=== PATIENT | male | born 1955 | race Caucasian/White ===

== ENCOUNTER 2019-08-24 01:00 | Day surgery (SDC) | payer OTHER, SELFPAY ==
[2019-08-19 10:53] VITALS: BMI 25.9
[2019-08-24 08:01] VITALS: BP 116/77; PULSE 77; RESP 16; TEMP 36.3; O2SAT 100; BMI 25.9
--- NOTE | 2019-08-24 08:08 | WPDANESEPPF ---
Anes - Initial Pre Proc Eval Procedure: Operation Date: 08/24/19 09:00 Proposed Procedures p Colonoscopy - Diogo Raymundo MD Date/Time: 08/24/19 08:08 Surgeon: Diogo Raymundo MD Pre Op Diagnosis: Rectal Bleeding Patient Data Age: 64 Gender: M Height: 5 ft 10 in Weight: 82.2 kg Last Vital Signs Temp 36.3 C L 08/24/19 08:01 Pulse 77 08/24/19 08:01 Resp 16 08/24/19 08:01 BP 116/77 08/24/19 08:01 Pulse Ox 100 08/24/19 08:01 Allergies Allergy/AdvReac Type Severity Reaction Status Date / Time No Known Allergies Allergy Verified 08/24/19 07:56 Home Medications Medication Instructions Recorded Confirmed Type atorvastatin 40 mg tablet 40 mg PO DAILY #90 tablet 07/20/19 08/19/19 Rx finasteride 5 mg tablet 5 mg PO DAILY #90 tablet 07/20/19 08/19/19 Rx loratadine [Claritin] 10 mg PO DAILY 08/19/19 08/19/19 History Patient hx anesthesia problems: none Family hx anesthesia problems: none PMFSH Past Medical History Medical History Rectal Hemorrhage Family History Family History Father Family history of coronary artery disease Social History Social History Smoking status: Never smoker Second hand tobacco smoke exposure: No Alcohol intake: current Gender identity (if verbalized by the patient): Male Anes - Eval Final PreProcedure Day of Procedure 08/24/19 08:08 Patient weight: overweight Heart: regular rate and rhythm Lungs: clear to auscultation Airway: Mallampati scale class II Neurological: alert and oriented Last oral intake: >/= 8 hours ASA classification: II Emergent: no Anesthetic plan: proceed Anesthesia type and monitoring: general GIVS and standard monitoring Informed Consent: The patient's anesthetic plan and its attendant risks and benefits were discussed with the patient/family/POA. Questions were solicited and answers provided to the satisfaction of the patient/family/POA.
[2019-08-24] MEDS: LACTATED RINGERS 1,000 ML 150 ML IV CONT (08:17)
--- NOTE | 2019-08-24 08:52 | WPDHPUPDATE1 ---
History and Physical Update Update Date/Time: 08/24/19 08:52 History and Physical has been reviewed, including an updated exam of the patient. There are NO changes in the patient's condition. Risks, benefits, and alternatives have been discussed and questions answered. Patient agrees to proceed with procedure.
[2019-08-24 09:15] VITALS: BP 112/74; PULSE 74; RESP 21; O2SAT 97
[2019-08-24 09:25] VITALS: BP 115/73; PULSE 64; RESP 13; O2SAT 98
[2019-08-24 09:29] VITALS: BP 123/85; PULSE 62; RESP 16; O2SAT 98
== END 2019-08-24 09:45 | disposition home or self-care (01) ==
PROVIDERS: PCP Family Medicine; Visit Provider Internal Medicine Gastroenterology
PROC: 0DJD8ZZ Inspection of Lower Intestinal Tract, Via Natural or Artificial Opening Endoscopic (ICD-10-PCS; CPT 45378; principal; 2019-08-24 09:00)
DX: K62.5 Hemorrhage of anus and rectum (principal); K57.30 Diverticulosis of large intestine without perforation or abscess without bleeding; K64.8 Other hemorrhoids; K64.4 Residual hemorrhoidal skin tags
CPT/HCPCS: 45378; J2001; J2704; J7120

== ENCOUNTER 2020-06-09 08:10 | Outpatient (CLI) | payer OTHER, SELFPAY ==
--- NOTE | ~2020-06-09 | XR_ITS ---
XR foot RT 2V DATE: 06/09/2020 08:21 INDICATION: Right foot pain TECHNIQUE: AP and lateral views COMPARISON: 05/22/2016 right great toe FINDINGS: There is severe osteoarthritis at the first metatarsophalangeal joint. Mild plantar calcaneal enthesopathy. There are some focal circumscribed calcification in the distal Achilles tendon. No fracture or dislocation, periosteal reaction or bone destruction. Anterior tibial and dorsalis pedis artery calcifications. 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 OPERATOR
== END 2020-06-09 08:11 | disposition home or self-care (01) ==
PROVIDERS: PCP Family Medicine; Visit Provider Nurse Practitioner Family
DX: M19.071 Primary osteoarthritis, right ankle and foot (principal); M77.31 Calcaneal spur, right foot
CPT/HCPCS: 73620

== ENCOUNTER → 2020-06-23 06:51 | Outpatient (CLI) | payer OTHER, SELFPAY ==
[2020-06-23 20:12] LABS: SARS-CoV-2 RNA PCR Negative
== END ==
PROVIDERS: PCP Family Medicine; Visit Provider Physician Assistant Medical
DX: R68.89 Other general symptoms and signs (principal); Z20.822 Contact with and (suspected) exposure to COVID-19
CPT/HCPCS: C9803; U0003; U0005

== ENCOUNTER 2020-10-17 10:26 | Emergency (ER) | payer OTHER, SELFPAY ==
--- NOTE | 2020-10-17 10:43 | ED.GENADULT ---
HPI - General Adult General Chief complaint: Wound/Laceration Stated complaint: INFECTED CYST ON MY BACK Time Seen by Provider: 10/17/20 10:29 History of Present Illness HPI narrative: Patient is a 65-year-old male who presents ER with a infected cyst to his left back. Was seen by his PCP last week and prescribed clindamycin. He continues to drain but the cellulitis surrounding it has improved. No fevers or chills or sweats. Has not had this opened for about 12 years. Related Data Home Medications Medication Instructions Recorded Confirmed finasteride 5 mg tablet 5 mg PO DAILY tablet 10/12/20 10/12/20 Allergies Allergy/AdvReac Type Severity Reaction Status Date / Time No Known Allergies Allergy Verified 10/12/20 14:07 Review of Systems Constitutional: Constitutional: Denies chills, Denies fever(s) and Denies weakness Integumentary/Breasts: Skin/Breast: Denies pruritus, Reports erythema and Denies rash Comments: abscess PMFSH Past Medical History Medical History BMI 26.0-26.9,adult BMI 29.0-29.9,adult Rectal Hemorrhage Family History Family History Father Family history of coronary artery disease Mother COPD (chronic obstructive pulmonary disease) Myasthenia gravis Sibling No problems noted. Social History Social History Smoking status: Former smoker Tobacco type: cigarettes Second hand tobacco smoke exposure: Yes Alcohol intake: current Substance use: never Substance use type: does not use Additional occupation/education comments: [employer] Gender identity (if verbalized by the patient): Male Exam Narrative: Exam Narrative: GENERAL: Well-appearing, well-nourished, and in no acute distress. HEAD: Normocephalic, atraumatic. EXTREMITIES: Normal range of motion. No edema. SKIN: Warm, dry, no rash. Weeping cystic abscess left flank. NEURO: Alert and oriented x3. PSYCH: Normal mood and affect. Course Vital Signs Vital signs: Vital Signs Temperature 98.0 F 10/17/20 10:53 Pulse Rate 72 10/17/20 10:53 Respiratory Rate 12 10/17/20 10:53 Blood Pressure 135/88 10/17/20 10:53 Pulse Oximetry 100 10/17/20 10:53 Temperature 98.0 F 10/17/20 10:53 Pulse Rate 72 10/17/20 10:53 Respiratory Rate 12 10/17/20 10:53 Blood Pressure 135/88 10/17/20 10:53 Pulse Oximetry 100 10/17/20 10:53 Procedures Abscess I/D back: Date of Incision: 10/17/20 Time of Incision: 10:55 Side (if applicable): left Local Anesthetic: lidocaine 1% and with epi Amount of anesthesia used (mL): 9 Technique: incised with #11 blade Irrigation: No Packing used?: iodoform I&D Results: Pus and Other (cystic material) Medical Decision Making Vital Signs Vital Signs: Vital Signs Temperature 98.0 F 10/17/20 10:53 Pulse Rate 72 10/17/20 10:53 Respiratory Rate 12 10/17/20 10:53 Blood Pressure 135/88 10/17/20 10:53 Pulse Oximetry 100 10/17/20 10:53 Temperature 98.0 F 10/17/20 10:53 Pulse Rate 72 10/17/20 10:53 Respiratory Rate 12 10/17/20 10:53 Blood Pressure 135/88 10/17/20 10:53 Pulse Oximetry 100 10/17/20 10:53 Discharge Plan Discharge Clinical Impression: Infected cyst of skin Patient Disposition: Home, Self-Care Condition: Stable Instructions: Antibiotic Form, Cyst (ED), Abscess Incision and Drainage (DC) Additional Instructions: You had an infected cyst on your back drained. Remove the packing in 2 days. You are being prescribed additional Keflex to take. Follow-up with your primary care doctor. Will likely need plastics referral for cyst removal. Return the ER if you have fever of 100.4 ?F, you cannot breathe, you have additional concerns. Presc
[2020-10-17 10:53] VITALS: BP 135/88; PULSE 72; RESP 12; TEMP 36.7; O2SAT 100
== END 2020-10-17 11:43 | disposition home or self-care (01) ==
PROVIDERS: Emergency Provider Emergency Medicine; PCP Family Medicine
DX: L02.212 Cutaneous abscess of back [any part, except buttock and flank] (principal); Z87.891 Personal history of nicotine dependence
CPT/HCPCS: 10061; 99283

== ENCOUNTER → 2021-02-14 08:20 | Outpatient (REF) | payer MEDICARE, SELFPAY | LOC: ANHLAB 08:20 | PROVIDERS: PCP Family Medicine; Visit Provider Nurse Practitioner | DX: L72.0 Epidermal cyst (principal) | CPT/HCPCS: 88304 ==

== ENCOUNTER 2021-12-28 07:59 | Outpatient (CLI) | payer MEDICARE, SELFPAY ==
--- NOTE | ~2021-12-28 | MR_ITS ---
EXAMINATION: MR brain/brain stem wo/w con DATE: 12/28/2021 08:46 INDICATION: Headache. TECHNIQUE: Magnetic resonance imaging (MRI) of the brain and brainstem was performed without and with 16 mL MultiHance intravenous contrast. COMPARISON: None. FINDINGS: There are scattered areas of nonspecific increased T2-weighted signal intensity in the cere bral white matter. There is no intracranial hemorrhage, acute infarction, or abnormal intracranial ma ss lesion. The ventricles are normal in size. The orbits are normal. There is mucosal thickening in t he paranasal sinuses. The mastoid air cells are normal. IMPRESSION: 1. Mild nonspecific cerebral white matter disease, which likely represents chronic small vessel ische laurent disease. Reviewed, dictated and finalized at location A. IMPRESSION: 1. 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
== END 2021-12-28 08:00 | disposition home or self-care (01) ==
LOC: ANHIMG 08:01
PROVIDERS: PCP Family Medicine; Visit Provider Nurse Practitioner Family
DX: R51.9 Headache, unspecified (principal); R93.0 Abnormal findings on diagnostic imaging of skull and head, not elsewhere classified
CPT/HCPCS: 70553; A9577

== ENCOUNTER 2024-05-02 23:58 | Emergency (ER) | payer MEDICARE, SELFPAY ==
--- NOTE | ~2024-05-02 | CT_ITS ---
EXAMINATION: CT abdomen pelvis w con DATE: 05/03/2024 02:25 INDICATION: Abdominal pain TECHNIQUE: Computed tomography (CT) of the abdomen and pelvis was performed with 100 mL Omnipaque-350 intravenous contrast. Automated exposure control and iterative reconstruction technique were employe d. The dose-length product was 478.03 mGy-cm. COMPARISON: None FINDINGS: Mild dependent atelectasis in bilateral lower lobes. Visualized inferior heart is unremarkable aside from some atherosclerotic coronary artery calcification. No pericardial or pleural effusion. Small sl iding-type hiatal hernia. There are couple subcentimeter low-attenuation hepatic cysts. Common bile d uct is dilated to 9 mm there is also diffuse mild intrahepatic biliary ductal dilation. No definitive distal obstructing stone or mass. Gallbladder remains normal. Spleen, pancreas and bilateral adrenal glands are normal. Bilateral nonobstructing nephrolithiasis with 5 mm stone at the mid left kidney a nd 2 mm stone at a lower pole calyx of the right kidney. Prominent distention of the bladder. Mild pr ostatomegaly measuring 4.2 x 3.5 cm. There is mild scattered colonic diverticulosis without adjacent from trace stranding to suggest diverticulitis. Small bowel and appendix are normal. No free intraper itoneal gas or fluid. No pathologically enlarged abdominal or pelvic lymphadenopathy. Moderate lumbar spondylosis. Chronic L1 compression fracture with 20% anterior vertebral body height loss. [place] d fractures of the right inferior pubic body and right sacral ala. IMPRESSION: 1. Mild intra and extrahepatic biliary ductal dilation without evident obstructing stone or mass. Cor relate with liver function tests and consider MRCP for further evaluation. 2. Small sliding-type hiatal hernia. 3. Bilateral nonobstructing nephrolithiasis. 4. Prominent distention of the bladder which could be due to outlet obstruction from the mildly enlar ged prostate. Reviewed, dictated and finalized at location A. TAIN WAITRESS/WAITER IMPRESSION: 1. Mild intra and extrahepatic biliary ductal dilation without evident obstruct ing stone or mass. Correlate with liver function tests and consider MRCP for fu rther evaluation. 2. Small sliding-type hiatal hernia. 3. Bilateral nonobstructing nephrolithiasis. 4. Prominent distention of the bladder which could be due to outlet obstruction from the mildly enlarged prostate.
--- NOTE | ~2024-05-02 | XR_ITS ---
EXAMINATION: XR chest 1V portable DATE: 05/03/2024 00:37 INDICATION: Mid chest pain TECHNIQUE: frontal view of the chest was obtained. COMPARISON: Chest radiograph dated 05/22/2016 FINDINGS: The lungs remain clear with no focal airspace opacities, pulmonary edema, pleural effusion or pneumot horax. The cardiomediastinal silhouette is normal. Visualized bones and soft tissues are unremarkable . IMPRESSION: 1. No acute cardiopulmonary disease. Reviewed, dictated and finalized at location A. BLE WATER TREATMENT OPERATOR
[2024-05-03] VITALS (7 sets, daily range): BP systolic 117–138; BP diastolic 55–66; PULSE 59–65; RESP 14–18; TEMP 35.1; O2SAT 99–100
--- NOTE | 2024-05-03 00:11 | ECG_ITS ---
Test Date: 2024-05-03 00:16:34 Measurements Intervals [place] Rate: 57 P: 22 UT: 127 QRS: 110 QRSD: 94 T: 48 QT: 414 QTc: 405 Interpretive Statements SINUS BRADYCARDIA MARKED RIGHT AXIS DEVIATION [QRS AXIS > 100] PATTERN CONSISTENT WITH PULMONARY DISEASE ABNORMAL ECG No previous ECG available for comparison Electronically Signed On 05-03-2024 09:02:23 DIGITAL MEDIA COORDINATOR by Satnam Maza M.D.
--- NOTE | 2024-05-03 00:19 | ECG_ITS ---
Test Date: 2024-05-03 00:21:36 Measurements Intervals [place] Rate: 54 P: 44 OR: 145 QRS: 78 QRSD: 102 T: 54 QT: 425 QTc: 404 Interpretive Statements SINUS BRADYCARDIA INDETERMINATE AXIS ABNORMAL ECG Compared to ECG 05/03/2024 00:16:34 Indeterminate axis now present Right-axis deviation no longer present Electronically Signed On 05-03-2024 09:02:42 MANAGER MARKET INTELLIGENCE by Satnam Maza M.D.
[2024-05-03] MEDS: ASPIRIN 81 MG CHEWABLE TABLET 324 MG PO (00:23)
[2024-05-03 00:27] LABS: Basophils Absolute Auto 0.1 K/mm3 (0.0-0.1); Basophils Percent Auto 0.8 % (0.2-1.2); Eosinophils Absolute Auto 0.7 K/mm3 (0-0.3); Eosinophils Percent Auto 6.4 % (0-4.4); Hematocrit 38.7 % (42.0-52.0); Hemoglobin 13.2 g/dL (14.0-18.0); Immature Granulocyte Absolute 0.03 K/mm3 (0.00-0.031); Immature Granulocyte Percent A 0.3 % (0-0.5); Lymphocytes Absolute Auto 2.78 K/mm3 (0.9-3.2); Mean Corpuscular HGB Conc 34.1 g/dl (32-36); Mean Corpuscular Volume 93.7 fl (80-100); Monocytes Absolute Auto 0.9 K/mm3 (0.1-0.6); Monocytes Percent Auto 8.5 % (2.6-8.5); Neutrophils Absolute Auto 5.9 K/mm3 (1.3-6.7); Platelet Count Result 253 k/mm3 (150-375); Red Blood Count 4.13 M/mm3 (4.6-6.20); Red Cell Distribution Width 12.8 % (11.5-14.5); White Blood Count 10.3 K/mm3 (4.5-10.0)
[2024-05-03 00:39] LABS: Prothrombin Time 13.4 Seconds (11.1-14.7)
[2024-05-03 00:40] LABS: Alanine Aminotransferase 45 U/L (6-50); Albumin Level 3.6 g/dL (3.5-5.1); Alkaline Phosphatase 155 U/L (38-126); Anion Gap 2 mmol/L (4-12); Aspartate Amino Transferase 102 U/L (17-59); Bilirubin,Total 0.7 mg/dL (0.2-1.3); Blood Urea Nitrogen 16 mg/dL (9-20); Carbon Dioxide 26 mmol/L (22-30); Chloride 109 mmol/L (98-107); Estimated CRCL calculation 59 ml/min; Estimated Glomerular Filt Rate > 60; Glucose 118 mg/dL (65-110); Lipase 179 U/L (23-300); Partial Thromboplastin Time 30.1 Seconds (22.3-36.8); Potassium 4.1 mmol/L (3.4-5.0); Sodium 137 mmol/L (137-145)
[2024-05-03 00:52] LABS: Troponin I < 0.012 ng/mL (0.000-0.034)
--- NOTE | 2024-05-03 01:29 | ED.GENADULT ---
HPI - General Adult General Chief complaint: Chest Pain Stated complaint: chest pain Time Seen by Provider: 05/03/24 00:39 History of Present Illness HPI narrative: Patient is 61-year-old gentleman who presents emergency department with chief complaint of chest discomfort. Patient reports that he started having discomfort about 30 minutes prior to arrival in the emergency department patient reports that he felt as though somebody was standing on his chest patient reports that he did get diaphoretic when this happened denied radiation to his arm neck. Patient reports no prior cardiac history Related Data Allergies Allergy/AdvReac Type Severity Reaction Status Date / Time sulfamethoxazole (From AdvReac Intermediate rash Verified 03/16/24 08:21 Bactrim) trimethoprim (From Bactrim) AdvReac Intermediate rash Verified 03/16/24 08:21 Review of Systems Review of Systems: A 10 system review of systems was completed on the patient and is negative except for what is stated in the HPI. Nursing and ancillary documentation was reviewed. PMFSH Past Medical History Medical History BMI 28.0-28.9,adult BMI 29.0-29.9,adult BMI 26.0-26.9,adult Rectal Hemorrhage Family History Family History Father Family history of coronary artery disease Mother COPD (chronic obstructive pulmonary disease) Myasthenia gravis Sibling No problems noted. Social History Social History Smoking status: Former smoker Tobacco type: cigarettes Second hand tobacco smoke exposure: Yes Alcohol intake: current Substance use: never Substance use type: does not use Lack of Transportation: No Lack of Food: Never True Current Housing: I Have Housing Concerned About Future Housing: No Difficulty Paying Gas/Electric Bills: No Difficulty Paying for Meds: No Currently Unemployed: No Education: Trade/Vocational Certificate Difficulty w/ Childcare or Family Care: No Living arrangements: with family Occupation/Education: retired Additional occupation/education comments: [employer] Gender identity (if verbalized by the patient): Male Exam Narrative: GENERAL: Well-appearing, well-nourished, and in no acute distress. HEAD: Normocephalic, atraumatic. EYES: PERRLA and EOMI. ENT: Nares clear, no rhinorrhea or epistaxis. Mucous membranes moist. NECK: Supple. CHEST: Clear to auscultation. No respiratory distress. HEART: Regular rate and rhythm. No murmur heard. Normal peripheral pulses. ABDOMEN: Soft, nontender, nondistended, normal active bowel sounds. EXTREMITIES: Normal range of motion. No edema. SKIN: Warm, dry, no rash. NEURO: No focal deficits. Alert and oriented x3. PSYCH: Normal mood and affect. Course Vital Signs Vital signs: Vital Signs Temperature 35.1 C L 05/03/24 00:01 Pulse Rate 65 05/03/24 00:01 Respiratory Rate 18 05/03/24 00:01 Blood Pressure 119/55 L 05/03/24 00:01 Pulse Oximetry 99 05/03/24 00:01 Oxygen Delivery Room Air 05/03/24 00:01 Temperature 35.1 C L 05/03/24 00:01 Pulse Rate 62 05/03/24 02:15 Respiratory Rate 14 05/03/24 02:15 Blood Pressure 138/66 05/03/24 02:15 Pulse Oximetry 100 05/03/24 02:15 Oxygen Delivery Room Air 05/03/24 01:05 Medical Decision Making MDM Narrative Medical decision making narrative: Differential diagnosis includes ACS, pancreatitis, intra-abdominal infection, diverticulitis, colitis, cholecystitis Laboratory studies were obtained on the patient showed a CBC with white count of 10.3 CMP showed no significant abnormalities troponin was 0 hour 3 hour lipase was normal CT scan of the abdomen pelvis showed no acute abnormality. Vital Signs Vital Signs: Vital Signs Temperature 35.1 C L 05/03/24 00:01 Pulse Rate 65 05/03/24 00:01 Respiratory Rate 18 05/03/24 00:01 Blood Pressure 119/55 L 05/03/24 00:01 Pulse Oximetry 99 05/03/24 00:01 Oxygen Delivery Room Air 05/03/24 00:01 Temperature 35.1 C L 05/03/24 00:01 Pulse Rate 62 05/03/24 02:15 Respiratory Rate 14 05/03/24 02:15 Blood Pressure 138/66 05/03/24 02:15 Pulse Oximetry 100 05/03/24 02:15 Oxygen Delivery Room Air 05/03/24 01:05 Lab Data 05/03/24 00:21 05/03/24 00:21 Labs: Lab Results 05/03/24 05/03/24 Range/Units 00:21 03:28 WBC 10.3 H (4.5-10.0) K/mm3 RBC 4.13 L (4.6-6.20) M/mm3 Hgb 13.2 L (14.0-18.0) g/dL Hct 38.7 L (42.0-52.0) % MCV 93.7 (80-100) fl MCH 32.0 (26-34) pg MCHC 34.1 (32-36) g/dl RDW 12.8 (11.5-14.5) % Plt Count 253 (150-375) k/mm3 MPV 10.0 (7.4-10.4) fl Immature Gran % (Auto) 0.3 (0-0.5) % Neut % (Auto) 57.0 (45.5-73.1) % Lymph % (Auto) 27.0 (18.3-44.2) % [place] % (Auto) 8.5 (2.6-8.5) % Eos % (Auto) 6.4 H (0-4.4) % Baso % (Auto) 0.8 (0.2-1.2) % Lymph # (Auto) 2.78 (0.9-3.2) K/mm3 [place] # (Auto) 0.9 H (0.1-0.6) K/mm3 Eos # (Auto) 0.7 H (0-0.3) K/mm3 Baso # (Auto) 0.1 (0.0-0.1) K/mm3 Abs Immat Gran (auto) 0.03 (0.00-0.031) K/mm3 Absolute Neuts (auto) 5.9 (1.3-6.7) K/mm3 Absolute Nucleated RBC 0.000 (0.0-0.012) K/mm3 Nucleated RBC % 0.0 (0.0-0.2) % PT 13.4 (11.1-14.7) Seconds INR 1.0 APTT 30.1 (22.3-36.8) Seconds Sodium 137 (137-145) mmol/L Potassium 4.1 (3.4-5.0) mmol/L Chloride 109 H (98-107) mmol/L Carbon Dioxide 26 (22-30) mmol/L Anion Gap 2 L (4-12) mmol/L BUN 16 (9-20) mg/dL Creatinine 1.10 (0.7-1.3) mg/dL Estim Creat Clear Calc 59 ml/min Estimated GFR > 60 (59 - ) Glucose 118 H (65-110) mg/dL Calcium 9.0 (8.4-10.2) mg/dL Total Bilirubin 0.7 (0.2-1.3) mg/dL AST 102 H (17-59) U/L ALT 45 (6-50) U/L Alkaline Phosphatase 155 H (38-126) U/L Troponin I < 0.012 < 0.012 (0.000-0.034) ng/mL Total Protein 6.0 L (6.3-8.2) g/dL Albumin 3.6 (3.5-5.1) g/dL Lipase 179 (23-300) U/L Discharge Plan Discharge Clinical Impression: Atypical chest pain, Nausea and vomiting Patient Disposition: Home, Self-Care Condition: Stable Instructions: Antibiotic Form, Chest Pain (ED), Acute Nausea and Vomiting (ED) Patient Language: [place] Prescriptions: New ondansetron 4 mg tablet,disintegrating 4 mg PO Q8H PRN (Reason: nausea and vomiting) Qty: 10 0RF No Action loratadine [Claritin] 10 mg tablet 10 mg PO DAILY Qty: 90 0RF finasteride 5 mg tablet 5 mg PO DAILY Qty: 90 1RF meloxicam 15 mg tablet See Rx Instructions .ROUTE .COMPLEX Qty: 90 0RF Dose Instruction: TAKE 1 TABLET BY MOUTH DAILY Rx Instructions: TAKE 1 TABLET BY MOUTH DAILY azithromycin [Zithromax] 250 mg tablet See Rx Instructions PO .COMPLEX Qty: 6 0RF Rx Instructions: take 500 mg today (day 1), then 250 mg for 4 days (days 2-5) PO atorvastatin 40 mg tablet 40 mg PO DAILY Qty: 90 1RF Follow-up/Referrals: Sadi Puckett MD [Primary Care Provider] - Time of Disposition: 04:55
[2024-05-03] MEDS: ONDANSETRON INJ 4 MG/2 ML VIAL IV PUSH (01:31)
[2024-05-03] MEDS: PROCHLORPERAZINE EDISYLATE 10 MG/2 ML VIAL IV PUSH (01:55)
[2024-05-03] MEDS: diphenhydrAMINE HCl INJ 50 MG/ML VIAL 25 MG IV PUSH (01:55)
[2024-05-03] MEDS: HALOPERIDOL LACTATE 5 MG/ML VIAL 2.5 MG IV PUSH (03:42)
[2024-05-03 03:54] LABS: Troponin I < 0.012 ng/mL (0.000-0.034)
--- OUTSIDE RECORDS SUMMARY | 2024-05-10 01:11 | XMS_ITS | Encounter Summary ---
Author Organization [facility] Address [address] [place] [address] Phone Care Team Providers Care Equipment Validation Specialist Name Role Phone Sadi Puckett MD Primary Care Provider [phone] Encounter Details Date Type Department Care Team (Late st Contact Info) Description 06/09/2020 Orders Only [facility] Scanning, Provider Social History Tobacco Use Types Packs/Day Years Used Date Smoking Tobacco: Never Assessed Sex and Gender Information Value Date Recorded Sex Assigned at Not on file 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 Gender Identity Male 07/26/2020 12:52 PM CDT Sexual Orientation Not on file documented as of this encounter Plan of Treatment Not on file documented as of this encounter Procedures Procedure Name Priority Date/Time Associated Diagnosis Comments SCAN - LABS 06/09/2020 documented in this encounter Results * SCAN - LABS (06/09/2020) us Provider Scanning Final Result documented in this encounter Visit Diagnoses Not on filedocumented in this encounter Care Teams Equipment Validation Specialist Relationship Specialty Start Date End Date Sadi Puckett MD PCP - General 07/26/20 documented as of this encounter
--- OUTSIDE RECORDS SUMMARY | 2024-05-10 01:11 | XMS_ITS | Clinical Summary ---
Author Organization [facility] Address [address] [place] [address] Care Team Providers Care Hanging Flags Decorator Name Role Phone Sadi Puckett MD Primary Care Provider + [phone] Allergies No known active allergies Medications atorvastatin (LIPITOR) 40 mg tablet Take 40 mg by mouth daily 0 Active finasteride (PROSCAR) 5 mg tablet 1 Active loratadine (CLARITIN) 10 mg tablet Take 10 mg by mouth daily 0 Active meloxicam (MOBIC) 15 mg tablet Take 15 mg by mouth daily 1 Active triamcinolone (KENALOG) 0.1 % cream APPLY EXTERNALLY TO THE AFFECTED AREA TWICE DAILY 1 Active Active Problems Problem Noted Date Diagnosed Date Rash 07/26/2020 Arthralgia 07/26/2020 Osteoarthritis 07/26/2020 Social History Tobacco Use Types Packs/Day Years Used Date Smoking Tobacco: Never Personal Safety Answer Date Recorded Getting School Help Needed Not on file 07/06 Sex and Gender Information Value Date Recorded Sex Assigned at Not on file 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 Gender Identity Male 07/26/2020 12:52 PM CDT Sexual Orientation Not on file Obstetrics History Last Filed Vital Signs Vital Sign Reading Time Taken Comments Blood Pressure 160/81 07/26/2020 9:45 AM CDT Pulse 64 07/26/2020 9:45 AM CDT Temperature 36.4 ??C (97.5 ??F) 07/26/2020 9:45 AM CD T Respiratory Rate - - Oxygen Saturation - - Inhaled Oxygen Concentration - - Weight 88.5 kg (195 lb 3.2 oz) 07/26/2020 9:45 A M CDT Height 177.8 cm (5' 10 ) 07/26/2020 9:45 AM CDT Body Mass Index 28.01 07/26/2020 9:45 AM CDT Plan of Treatment Not on file Insurance CIGNA CIGNA Care Teams Hanging Flags Decorator Relationship Specialty Start Date End Date Sadi Puckett MD PCP - General 07/26/20
--- OUTSIDE RECORDS SUMMARY | 2024-05-10 01:11 | XMS_ITS | Encounter Summary ---
Author Organization [facility] Address [address] [place] [address] Care Team Providers Care Bookkeeping Teacher Name Role Phone Sadi Puckett MD Primary Care Provider + [phone] Reason for Referral * Diagnostic Imaging (Routine) - Closed Specialty Diagnoses / [facility] To Contact Diagnoses Arthralgia, unspecified joint Procedures XR Foot Right 3 or More Views Savannah Manriquez NP Phone: tel: fax: [facility] Referral ID Status Reason Start Date Expiration Date Visits Re quested Visits Authorized [id number] Closed 07/26/2020 08/25/2021 1 1 * Diagnostic Imaging (Routine) - Closed Specialty Diagnoses / [facility] To Contact Diagnoses Arthralgia, unspecified joint Procedures XR Foot Left 3 or More Views Savannah Manriquez NP Phone: tel: fax: [facility] Referral ID Status Reason Start Date Expiration Date Visits Re quested Visits Authorized [id number] Closed 07/26/2020 08/25/2021 1 1 * Diagnostic Imaging (Routine) - Closed Specialty Diagnoses / Procedures Referred By [facility] Referred To Contact Diagnoses Arthralgia, unspecified joint Procedures XR Ankle Left 3 or More Views Savannah Manriquez NP Phone: tel: fax: [facility] Referral ID Status Reason Start Date Expiration Date Visits Re quested Visits Authorized [id number] Closed 07/26/2020 08/25/2021 1 1 * Diagnostic Imaging (Routine) - Closed Specialty Diagnoses / Procedures Referred By [facility] Referred To Contact Diagnoses Psoriatic arthritis (HCC) Procedures XR Wrist Right 3 or More Views Savannah Manriquez NP Phone: tel: fax: [facility] Referral ID Status Reason Start Date Expiration Date Visits Re quested Visits Authorized [id number] Closed 07/26/2020 08/25/2021 1 1 * Diagnostic Imaging (Routine) - Closed Specialty Diagnoses / Procedures Referred By [facility] Referred To Contact Diagnoses Psoriatic arthritis (HCC) Procedures XR Hand Right 3 or More Views Savannah Manriquez NP Phone: tel: fax: [facility] Referral ID Status Reason Start Date Expiration Date Visits Re quested Visits Authorized [id number] Closed 07/26/2020 08/25/2021 1 1 * Diagnostic Imaging (Routine) - Closed Specialty Diagnoses / Procedures Referred By [facility] Referred To Contact Diagnoses Psoriatic arthritis (HCC) Procedures XR Hand Left 3 or More Views Savannah Manriquez NP Phone: tel: fax: [facility] Referral ID Status Reason Start Date Expiration Date Visits Re quested Visits Authorized [id number] Closed 07/26/2020 08/25/2021 1 1 * Diagnostic Imaging (Routine) - Closed Specialty Diagnoses / Procedures Referred By [facility] t Referred To Contact Diagnoses Psoriatic arthritis (HCC) Procedures XR Wrist Left 3 or More Views Savannah Manriquez NP Phone: tel: fax: [facility] Referral ID Status Reason Start Date Expiration Date Visits Re quested Visits Authorized [id number] Closed 07/26/2020 08/25/2021 1 1 * Diagnostic Imaging (Routine) - Closed Specialty Diagnoses / Procedures Referred By [facility] t Referred To Contact Diagnoses Arthralgia, unspecified joint Procedures XR Ankle Right 3 or More Views Savannah Manriquez NP Phone: tel: fax: [facility] Referral ID Status Reason Start Date Expiration Date Visits Re quested Visits Authorized [id number] Closed 07/26/2020 08/25/2021 1 1 Reason for Visit * Diagnostic Imaging (Routine) - Closed Specialty Diagnoses / Procedures Referred By Contac t Referred To Contact Diagnoses Arthralgia, unspecified joint Procedures XR Ankle Right 3 or More Views Savannah Manriquez NP Phone: tel: fax: [facility] Referral ID Status Reason Start Date Expiration Date Visits Re quested Visits Authorized [id number] Closed 07/26/2020 08/25/2021 1 1 Encounter Details Date Type Department Care Team (Latest Contact Info) Description 07/26/2020 11:11 AM CDT - 07/26/2020 11:59 PM CDT Hospital Encounter [facility] [address] [place] [address] Savannah Manriquez NP [address] [place] [address] Arthralgia, unspecified joint; Psoriatic arthritis (CMS/HCC) Discharge Disposition: Discharge to home or self care Social History Tobacco Use Types Packs/Day Years Used Date Smoking Tobacco: Never Sex and Gender Information Value Date Recorded Sex Assigned at Not on file 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 Gender Identity Male 07/26/2020 12:52 PM CDT Sexual Orientation Not on file documented as of this encounter Medications at Time of Discharge atorvastatin (LIPITOR) 40 mg tablet Take 40 mg by mouth daily 05/02/2020 finasteride (PROSCAR) 5 mg tablet 07/14/2020 loratadine (CLARITIN) 10 mg tablet Take 10 mg by mouth daily 05/02/2020 meloxicam (MOBIC) 15 mg tablet Take 15 mg by mouth daily 07/02/2020 triamcinolone (KENALOG) 0.1 % cream APPLY EXTERNALLY TO THE AFFECTED AREA TWICE DAILY 06/08/2020 documented as of this encounter Discharge Disposition Disposition Code Departure Means Destination Discharge to home or self care documented in this encounter Plan of Treatment Not on file documented as of this encounter Procedures Procedure Name Priority Date/Time Associated Diagnosis Comments XR FOOT RIGHT 3 OR MORE VIEWS Routine 07/26/2020 11:30 AM CDT Arthralgia, unspecified joint XR FOOT LEFT 3 OR MORE VIEWS Routine 07/26/2020 11:30 AM CDT Arthralgia, unspecified joint XR ANKLE RIGHT 3 OR MORE VIEWS Routine 07/26/2020 11:30 AM CDT Arthralgia, unspecified joint XR ANKLE LEFT 3 OR MORE VIEWS Routine 07/26/2020 11:30 AM CDT Arthralgia, unspecified joint XR HAND RIGHT 3 OR MORE VIEWS Routine 07/26/2020 11:30 AM CDT Psoriatic arthritis (CMS/HCC) XR HAND LEFT 3 OR MORE VIEWS Routine 07/26/2020 11:30 AM CDT Psoriatic arthritis (CMS/HCC) XR WRIST RIGHT 3 OR MORE VIEWS Routine 07/26/2020 11:30 AM CDT Psoriatic arthritis ([facility]/HCC) XR WRIST LEFT 3 OR MORE VIEWS Routine 07/26/2020 11:30 AM CDT Psoriatic arthritis ([facility]) documented in this encounter Results * XR Foot Right 3 or More Views (07/26/2020 11:30 AM CDT) Anatomical Region Laterality Modality Lower Extremities, Foot Right Computed Radiography 07/26/2020 12:1 6 PM CDT Impressions 07/26/2020 12:16 PM CDT 1. Scattered polyarticular osteoarthritis of the hands, wrists, ankles and feet without definite radiographic evidence for an erosive arthropathy. Electronically signed by: Galen Munoz M.D. Narrative 07/26/2020 12:16 PM CDT EXAM: 1. ??XR ANKLE RIGHT 3 OR MORE VIEWS 2. ??XR WRIST LEFT 3 OR MORE VIEWS 3. ??XR HAND LEFT 3 OR MORE VIEWS 4. ??XR HAND RIGHT 3 OR MORE VIEWS 5. ??XR WRIST RIGHT 3 OR MORE VIEWS 6. ??XR ANKLE LEFT 3 OR MORE VIEWS 7. ??XR FOOT LEFT 3 OR MORE VIEWS, 8. ??XR FOOT RIGHT 3 OR MORE VIEWS HISTORY: Psoriatic arthritis and polyarticular pain COMPARISON: None FINDINGS: 3 radiographs of the right hand, 3 radiographs of the right wrist, 3 radiographs of the left hand, 3 views of the left wrist, the radiographs of the right foot, 3 radiographs of left foot, 3 radiographs of the right ankle and 3 radiographs of left ankle are submitted for interpretation. Right hand/wrist: No acute fracture. Alignment is normal. Severe basal joint of thumb and moderate triscaphe joint osteoarthritis. Mild scattered osteoarthritis of the distal interphalangeal joints. Possible old healed fracture of the fifth metacarpal shaft. No definite erosions identified. Left hand/wrist: No acute fracture. Alignment is normal. Possible old healed fifth metacarpal shaft fracture. There is joint space narrowing of the third metacarpophalangeal joint with small hook osteophyte formation and subchondral cyst formation. There is moderate basal joint of thumb osteoarthritis. There is a small ossicle distal to the ulnar styloid process. Mild scattered distal interphalangeal joint osteoarthritis. No definite erosions identified. Left foot/ankle: No acute fracture. Ankle mortise is preserved. Small distal Achilles tendon enthesophyte. Mild osteoarthritis of the great toe metatarsophalangeal joint. No definite erosions identified. Vascular calcifications are present. Right foot/ankle: No acute fracture. Ankle mortise is preserved. Small heterotopic ossification within the distal Achilles tendon. Small calcaneal plantar spur. Moderate great toe metatarsophalangeal joint osteoarthritis. No erosions identified. Vascular calcifications are present. Procedure Note Galen Munoz MD - 07/26/2020 EXAM: 1. XR ANKLE RIGHT 3 OR MORE VIEWS 2. XR WRIST LEFT 3 OR MORE VIEWS 3. XR HAND LEFT 3 OR MORE VIEWS 4. XR HAND RIGHT 3 OR MORE VIEWS 5. XR WRIST RIGHT 3 OR MORE VIEWS 6. XR ANKLE LEFT 3 OR MORE VIEWS 7. XR FOOT LEFT 3 OR MORE VIEWS, 8. XR FOOT RIGHT 3 OR MORE VIEWS HISTORY: Psoriatic arthritis and polyarticular pain COMPARISON: None FINDINGS: 3 radiographs of the right hand, 3 radiographs of the right wrist, 3 radiographs of the left hand, 3 views of the left wrist, the radiographs of the right foot, 3 radiographs of left foot, 3 radiographs of the right ankle and 3 radiographs of left ankle are submitted for interpretation. Right hand/wrist: No acute fracture. Alignment is normal. Severe basal joint of thumb and moderate triscaphe joint osteoarthritis. Mild scattered osteoarthritis of the distal interphalangeal joints. Possible old healed fracture of the fifth metacarpal shaft. No definite erosions identified. Left hand/wrist: No acute fracture. Alignment is normal. Possible old healed fifth metacarpal shaft fracture. There is joint space narrowing of the third metacarpophalangeal joint with small hook osteophyte formation and subchondral cyst formation. There is moderate basal joint of thumb osteoarthritis. There is a small ossicle distal to the ulnar styloid process. Mild scattered distal interphalangeal joint osteoarthritis. No definite erosions identified. Left foot/ankle: No acute fracture. Ankle mortise is preserved. Small distal Achilles tendon enthesophyte. Mild osteoarthritis of the great toe metatarsophalangeal joint. No definite erosions identified. Vascular calcifications are present. Right foot/ankle: No acute fracture. Ankle mortise is preserved. Small heterotopic ossification within the distal Achilles tendon. Small calcaneal plantar spur. Moderate great toe metatarsophalangeal joint osteoarthritis. No erosions identified. Vascular calcifications are present. IMPRESSION: 1. Scattered polyarticular osteoarthritis of the hands, wrists, ankles and feet without definite radiographic evidence for an erosive arthropathy. Electronically signed by: Galen Munoz M.D. Savannah Ann Manriquez SHEET WRITER IMG XR PROCEDURES Final R esult * XR Foot Left 3 or More Views (07/26/2020 11:30 AM CDT) Anatomical Region Laterality Modality Lower Extremities, Foot Left Computed Radiography 07/26/2020 12:1 6 PM CDT Impressions 07/26/2020 12:16 PM CDT 1. Scattered polyarticular osteoarthritis of the hands, wrists, ankles and feet without definite radiographic evidence for an erosive arthropathy. Electronically signed by: Galen Munoz M.D. Narrative 07/26/2020 12:16 PM CDT EXAM: 1. ??XR ANKLE RIGHT 3 OR MORE VIEWS 2. ??XR WRIST LEFT 3 OR MORE VIEWS 3. ??XR HAND LEFT 3 OR MORE VIEWS 4. ??XR HAND RIGHT 3 OR MORE VIEWS 5. ??XR WRIST RIGHT 3 OR MORE VIEWS 6. ??XR ANKLE LEFT 3 OR MORE VIEWS 7. ??XR FOOT LEFT 3 OR MORE VIEWS, 8. ??XR FOOT RIGHT 3 OR MORE VIEWS HISTORY: Psoriatic arthritis and polyarticular pain COMPARISON: None FINDINGS: 3 radiographs of the right hand, 3 radiographs of the right wrist, 3 radiographs of the left hand, 3 views of the left wrist, the radiographs of the right foot, 3 radiographs of left foot, 3 radiographs of the right ankle and 3 radiographs of left ankle are submitted for interpretation. Right hand/wrist: No acute fracture. Alignment is normal. Severe basal joint of thumb and moderate triscaphe joint osteoarthritis. Mild scattered osteoarthritis of the distal interphalangeal joints. Possible old healed fracture of the fifth metacarpal shaft. No definite erosions identified. Left hand/wrist: No acute fracture. Alignment is normal. Possible old healed fifth metacarpal shaft fracture. There is joint space narrowing of the third metacarpophalangeal joint with small hook osteophyte formation and subchondral cyst formation. There is moderate basal joint of thumb osteoarthritis. There is a small ossicle distal to the ulnar styloid process. Mild scattered distal interphalangeal joint osteoarthritis. No definite erosions identified. Left foot/ankle: No acute fracture. Ankle mortise is preserved. Small distal Achilles tendon enthesophyte. Mild osteoarthritis of the great toe metatarsophalangeal joint. No definite erosions identified. Vascular calcifications are present. Right foot/ankle: No acute fracture. Ankle mortise is preserved. Small heterotopic ossification within the distal Achilles tendon. Small calcaneal plantar spur. Moderate great toe metatarsophalangeal joint osteoarthritis. No erosions identified. Vascular calcifications are present. Procedure Note Galen Munoz MD - 07/26/2020 EXAM: 1. XR ANKLE RIGHT 3 OR MORE VIEWS 2. XR WRIST LEFT 3 OR MORE VIEWS 3. XR HAND LEFT 3 OR MORE VIEWS 4. XR HAND RIGHT 3 OR MORE VIEWS 5. XR WRIST RIGHT 3 OR MORE VIEWS 6. XR ANKLE LEFT 3 OR MORE VIEWS 7. XR FOOT LEFT 3 OR MORE VIEWS, 8. XR FOOT RIGHT 3 OR MORE VIEWS HISTORY: Psoriatic arthritis and polyarticular pain COMPARISON: None FINDINGS: 3 radiographs of the right hand, 3 radiographs of the right wrist, 3 radiographs of the left hand, 3 views of the left wrist, the radiographs of the right foot, 3 radiographs of left foot, 3 radiographs of the right ankle and 3 radiographs of left ankle are submitted for interpretation. Right hand/wrist: No acute fracture. Alignment is normal. Severe basal joint of thumb and moderate triscaphe joint osteoarthritis. Mild scattered osteoarthritis of the distal interphalangeal joints. Possible old healed fracture of the fifth metacarpal shaft. No definite erosions identified. Left hand/wrist: No acute fracture. Alignment is normal. Possible old healed fifth metacarpal shaft fracture. There is joint space narrowing of the third metacarpophalangeal joint with small hook osteophyte formation and subchondral cyst formation. There is moderate basal joint of thumb osteoarthritis. There is a small ossicle distal to the ulnar styloid process. Mild scattered distal interphalangeal joint osteoarthritis. No definite erosions identified. Left foot/ankle: No acute fracture. Ankle mortise is preserved. Small distal Achilles tendon enthesophyte. Mild osteoarthritis of the great toe metatarsophalangeal joint. No definite erosions identified. Vascular calcifications are present. Right foot/ankle: No acute fracture. Ankle mortise is preserved. Small heterotopic ossification within the distal Achilles tendon. Small calcaneal plantar spur. Moderate great toe metatarsophalangeal joint osteoarthritis. No erosions identified. Vascular calcifications are present. IMPRESSION: 1. Scattered polyarticular osteoarthritis of the hands, wrists, ankles and feet without definite radiographic evidence for an erosive arthropathy. Electronically signed by: Galen Munoz M.D. us Savannah Manriquez NP IMG XR PROCEDURES Final R esult * XR Ankle Left 3 or More Views (07/26/2020 11:30 AM CDT) Anatomical Region Laterality Modality Lower Extremities, Ankle Left Compute d Radiography 07/26/2020 12:1 6 PM CDT Impressions 07/26/2020 12:16 PM CDT 1. Scattered polyarticular osteoarthritis of the hands, wrists, ankles and feet without definite radiographic evidence for an erosive arthropathy. Electronically signed by: Galen Munoz M.D. Narrative 07/26/2020 12:16 PM CDT EXAM: 1. ??XR ANKLE RIGHT 3 OR MORE VIEWS 2. ??XR WRIST LEFT 3 OR MORE VIEWS 3. ??XR HAND LEFT 3 OR MORE VIEWS 4. ??XR HAND RIGHT 3 OR MORE VIEWS 5. ??XR WRIST RIGHT 3 OR MORE VIEWS 6. ??XR ANKLE LEFT 3 OR MORE VIEWS 7. ??XR FOOT LEFT 3 OR MORE VIEWS, 8. ??XR FOOT RIGHT 3 OR MORE VIEWS HISTORY: Psoriatic arthritis and polyarticular pain COMPARISON: None FINDINGS: 3 radiographs of the right hand, 3 radiographs of the right wrist, 3 radiographs of the left hand, 3 views of the left wrist, the radiographs of the right foot, 3 radiographs of left foot, 3 radiographs of the right ankle and 3 radiographs of left ankle are submitted for interpretation. Right hand/wrist: No acute fracture. Alignment is normal. Severe basal joint of thumb and moderate triscaphe joint osteoarthritis. Mild scattered osteoarthritis of the distal interphalangeal joints. Possible old healed fracture of the fifth metacarpal shaft. No definite erosions identified. Left hand/wrist: No acute fracture. Alignment is normal. Possible old healed fifth metacarpal shaft fracture. There is joint space narrowing of the third metacarpophalangeal joint with small hook osteophyte formation and subchondral cyst formation. There is moderate basal joint of thumb osteoarthritis. There is a small ossicle distal to the ulnar styloid process. Mild scattered distal interphalangeal joint osteoarthritis. No definite erosions identified. Left foot/ankle: No acute fracture. Ankle mortise is preserved. Small distal Achilles tendon enthesophyte. Mild osteoarthritis of the great toe metatarsophalangeal joint. No definite erosions identified. Vascular calcifications are present. Right foot/ankle: No acute fracture. Ankle mortise is preserved. Small heterotopic ossification within the distal Achilles tendon. Small calcaneal plantar spur. Moderate great toe metatarsophalangeal joint osteoarthritis. No erosions identified. Vascular calcifications are present. Procedure Note Galen Munoz MD - 07/26/2020 EXAM: 1. XR ANKLE RIGHT 3 OR MORE VIEWS 2. XR WRIST LEFT 3 OR MORE VIEWS 3. XR HAND LEFT 3 OR MORE VIEWS 4. XR HAND RIGHT 3 OR MORE VIEWS 5. XR WRIST RIGHT 3 OR MORE VIEWS 6. XR ANKLE LEFT 3 OR MORE VIEWS 7. XR FOOT LEFT 3 OR MORE VIEWS, 8. XR FOOT RIGHT 3 OR MORE VIEWS HISTORY: Psoriatic arthritis and polyarticular pain COMPARISON: None FINDINGS: 3 radiographs of the right hand, 3 radiographs of the right wrist, 3 radiographs of the left hand, 3 views of the left wrist, the radiographs of the right foot, 3 radiographs of left foot, 3 radiographs of the right ankle and 3 radiographs of left ankle are submitted for interpretation. Right hand/wrist: No acute fracture. Alignment is normal. Severe basal joint of thumb and moderate triscaphe joint osteoarthritis. Mild scattered osteoarthritis of the distal interphalangeal joints. Possible old healed fracture of the fifth metacarpal shaft. No definite erosions identified. Left hand/wrist: No acute fracture. Alignment is normal. Possible old healed fifth metacarpal shaft fracture. There is joint space narrowing of the third metacarpophalangeal joint with small hook osteophyte formation and subchondral cyst formation. There is moderate basal joint of thumb osteoarthritis. There is a small ossicle distal to the ulnar styloid process. Mild scattered distal interphalangeal joint osteoarthritis. No definite erosions identified. Left foot/ankle: No acute fracture. Ankle mortise is preserved. Small distal Achilles tendon enthesophyte. Mild osteoarthritis of the great toe metatarsophalangeal joint. No definite erosions identified. Vascular calcifications are present. Right foot/ankle: No acute fracture. Ankle mortise is preserved. Small heterotopic ossification within the distal Achilles tendon. Small calcaneal plantar spur. Moderate great toe metatarsophalangeal joint osteoarthritis. No erosions identified. Vascular calcifications are present. IMPRESSION: 1. Scattered polyarticular osteoarthritis of the hands, wrists, ankles and feet without definite radiographic evidence for an erosive arthropathy. Electronically signed by: Galen Munoz M.D. Savannah Manriquez NP IMG XR PROCEDURES Final R esult * XR Wrist Right 3 or More Views (07/26/2020 11:30 AM CDT) Anatomical Region Laterality Modality Upper Extremities, Wrist Right Compute d Radiography 07/26/2020 12:1 6 PM CDT Impressions 07/26/2020 12:16 PM CDT 1. Scattered polyarticular osteoarthritis of the hands, wrists, ankles and feet without definite radiographic evidence for an erosive arthropathy. Electronically signed by: Galen Munoz M.D. Narrative 07/26/2020 12:16 PM CDT EXAM: 1. ??XR ANKLE RIGHT 3 OR MORE VIEWS 2. ??XR WRIST LEFT 3 OR MORE VIEWS 3. ??XR HAND LEFT 3 OR MORE VIEWS 4. ??XR HAND RIGHT 3 OR MORE VIEWS 5. ??XR WRIST RIGHT 3 OR MORE VIEWS 6. ??XR ANKLE LEFT 3 OR MORE VIEWS 7. ??XR FOOT LEFT 3 OR MORE VIEWS, 8. ??XR FOOT RIGHT 3 OR MORE VIEWS HISTORY: Psoriatic arthritis and polyarticular pain COMPARISON: None FINDINGS: 3 radiographs of the right hand, 3 radiographs of the right wrist, 3 radiographs of the left hand, 3 views of the left wrist, the radiographs of the right foot, 3 radiographs of left foot, 3 radiographs of the right ankle and 3 radiographs of left ankle are submitted for interpretation. Right hand/wrist: No acute fracture. Alignment is normal. Severe basal joint of thumb and moderate triscaphe joint osteoarthritis. Mild scattered osteoarthritis of the distal interphalangeal joints. Possible old healed fracture of the fifth metacarpal shaft. No definite erosions identified. Left hand/wrist: No acute fracture. Alignment is normal. Possible old healed fifth metacarpal shaft fracture. There is joint space narrowing of the third metacarpophalangeal joint with small hook osteophyte formation and subchondral cyst formation. There is moderate basal joint of thumb osteoarthritis. There is a small ossicle distal to the ulnar styloid process. Mild scattered distal interphalangeal joint osteoarthritis. No definite erosions identified. Left foot/ankle: No acute fracture. Ankle mortise is preserved. Small distal Achilles tendon enthesophyte. Mild osteoarthritis of the great toe metatarsophalangeal joint. No definite erosions identified. Vascular calcifications are present. Right foot/ankle: No acute fracture. Ankle mortise is preserved. Small heterotopic ossification within the distal Achilles tendon. Small calcaneal plantar spur. Moderate great toe metatarsophalangeal joint osteoarthritis. No erosions identified. Vascular calcifications are present. Procedure Note Galen Munoz MD - 07/26/2020 EXAM: 1. XR ANKLE RIGHT 3 OR MORE VIEWS 2. XR WRIST LEFT 3 OR MORE VIEWS 3. XR HAND LEFT 3 OR MORE VIEWS 4. XR HAND RIGHT 3 OR MORE VIEWS 5. XR WRIST RIGHT 3 OR MORE VIEWS 6. XR ANKLE LEFT 3 OR MORE VIEWS 7. XR FOOT LEFT 3 OR MORE VIEWS, 8. XR FOOT RIGHT 3 OR MORE VIEWS HISTORY: Psoriatic arthritis and polyarticular pain COMPARISON: None FINDINGS: 3 radiographs of the right hand, 3 radiographs of the right wrist, 3 radiographs of the left hand, 3 views of the left wrist, the radiographs of the right foot, 3 radiographs of left foot, 3 radiographs of the right ankle and 3 radiographs of left ankle are submitted for interpretation. Right hand/wrist: No acute fracture. Alignment is normal. Severe basal joint of thumb and moderate triscaphe joint osteoarthritis. Mild scattered osteoarthritis of the distal interphalangeal joints. Possible old healed fracture of the fifth metacarpal shaft. No definite erosions identified. Left hand/wrist: No acute fracture. Alignment is normal. Possible old healed fifth metacarpal shaft fracture. There is joint space narrowing of the third metacarpophalangeal joint with small hook osteophyte formation and subchondral cyst formation. There is moderate basal joint of thumb osteoarthritis. There is a small ossicle distal to the ulnar styloid process. Mild scattered distal interphalangeal joint osteoarthritis. No definite erosions identified. Left foot/ankle: No acute fracture. Ankle mortise is preserved. Small distal Achilles tendon enthesophyte. Mild osteoarthritis of the great toe metatarsophalangeal joint. No definite erosions identified. Vascular calcifications are present. Right foot/ankle: No acute fracture. Ankle mortise is preserved. Small heterotopic ossification within the distal Achilles tendon. Small calcaneal plantar spur. Moderate great toe metatarsophalangeal joint osteoarthritis. No erosions identified. Vascular calcifications are present. IMPRESSION: 1. Scattered polyarticular osteoarthritis of the hands, wrists, ankles and feet without definite radiographic evidence for an erosive arthropathy. Electronically signed by: Galen Munoz M.D. Savannah Manriquez NP IMG XR PROCEDURES Final R esult * XR Hand Right 3 or More Views (07/26/2020 11:30 AM CDT) Anatomical Region Laterality Modality Upper Extremities, Hand Right Computed Radiography 07/26/2020 12:1 6 PM CDT Impressions 07/26/2020 12:16 PM CDT 1. Scattered polyarticular osteoarthritis of the hands, wrists, ankles and feet without definite radiographic evidence for an erosive arthropathy. Electronically signed by: Galen Munoz M.D. Narrative 07/26/2020 12:16 PM CDT EXAM: 1. ??XR ANKLE RIGHT 3 OR MORE VIEWS 2. ??XR WRIST LEFT 3 OR MORE VIEWS 3. ??XR HAND LEFT 3 OR MORE VIEWS 4. ??XR HAND RIGHT 3 OR MORE VIEWS 5. ??XR WRIST RIGHT 3 OR MORE VIEWS 6. ??XR ANKLE LEFT 3 OR MORE VIEWS 7. ??XR FOOT LEFT 3 OR MORE VIEWS, 8. ??XR FOOT RIGHT 3 OR MORE VIEWS HISTORY: Psoriatic arthritis and polyarticular pain COMPARISON: None FINDINGS: 3 radiographs of the right hand, 3 radiographs of the right wrist, 3 radiographs of the left hand, 3 views of the left wrist, the radiographs of the right foot, 3 radiographs of left foot, 3 radiographs of the right ankle and 3 radiographs of left ankle are submitted for interpretation. Right hand/wrist: No acute fracture. Alignment is normal. Severe basal joint of thumb and moderate triscaphe joint osteoarthritis. Mild scattered osteoarthritis of the distal interphalangeal joints. Possible old healed fracture of the fifth metacarpal shaft. No definite erosions identified. Left hand/wrist: No acute fracture. Alignment is normal. Possible old healed fifth metacarpal shaft fracture. There is joint space narrowing of the third metacarpophalangeal joint with small hook osteophyte formation and subchondral cyst formation. There is moderate basal joint of thumb osteoarthritis. There is a small ossicle distal to the ulnar styloid process. Mild scattered distal interphalangeal joint osteoarthritis. No definite erosions identified. Left foot/ankle: No acute fracture. Ankle mortise is preserved. Small distal Achilles tendon enthesophyte. Mild osteoarthritis of the great toe metatarsophalangeal joint. No definite erosions identified. Vascular calcifications are present. Right foot/ankle: No acute fracture. Ankle mortise is preserved. Small heterotopic ossification within the distal Achilles tendon. Small calcaneal plantar spur. Moderate great toe metatarsophalangeal joint osteoarthritis. No erosions identified. Vascular calcifications are present. Procedure Note Galen Munoz MD - 07/26/2020 EXAM: 1. XR ANKLE RIGHT 3 OR MORE VIEWS 2. XR WRIST LEFT 3 OR MORE VIEWS 3. XR HAND LEFT 3 OR MORE VIEWS 4. XR HAND RIGHT 3 OR MORE VIEWS 5. XR WRIST RIGHT 3 OR MORE VIEWS 6. XR ANKLE LEFT 3 OR MORE VIEWS 7. XR FOOT LEFT 3 OR MORE VIEWS, 8. XR FOOT RIGHT 3 OR MORE VIEWS HISTORY: Psoriatic arthritis and polyarticular pain COMPARISON: None FINDINGS: 3 radiographs of the right hand, 3 radiographs of the right wrist, 3 radiographs of the left hand, 3 views of the left wrist, the radiographs of the right foot, 3 radiographs of left foot, 3 radiographs of the right ankle and 3 radiographs of left ankle are submitted for interpretation. Right hand/wrist: No acute fracture. Alignment is normal. Severe basal joint of thumb and moderate triscaphe joint osteoarthritis. Mild scattered osteoarthritis of the distal interphalangeal joints. Possible old healed fracture of the fifth metacarpal shaft. No definite erosions identified. Left hand/wrist: No acute fracture. Alignment is normal. Possible old healed fifth metacarpal shaft fracture. There is joint space narrowing of the third metacarpophalangeal joint with small hook osteophyte formation and subchondral cyst formation. There is moderate basal joint of thumb osteoarthritis. There is a small ossicle distal to the ulnar styloid process. Mild scattered distal interphalangeal joint osteoarthritis. No definite erosions identified. Left foot/ankle: No acute fracture. Ankle mortise is preserved. Small distal Achilles tendon enthesophyte. Mild osteoarthritis of the great toe metatarsophalangeal joint. No definite erosions identified. Vascular calcifications are present. Right foot/ankle: No acute fracture. Ankle mortise is preserved. Small heterotopic ossification within the distal Achilles tendon. Small calcaneal plantar spur. Moderate great toe metatarsophalangeal joint osteoarthritis. No erosions identified. Vascular calcifications are present. IMPRESSION: 1. Scattered polyarticular osteoarthritis of the hands, wrists, ankles and feet without definite radiographic evidence for an erosive arthropathy. Electronically signed by: Galen Munoz M.D. Savannah Manriquez NP IMG XR PROCEDURES Final R esult * XR Hand Left 3 or More Views (07/26/2020 11:30 AM CDT) Anatomical Region Laterality Modality Upper Extremities, Hand Left Computed Radiography 07/26/2020 12:1 6 PM CDT Impressions 07/26/2020 12:16 PM CDT 1. Scattered polyarticular osteoarthritis of the hands, wrists, ankles and feet without definite radiographic evidence for an erosive arthropathy. Electronically signed by: Galen Munoz M.D. Narrative 07/26/2020 12:16 PM CDT EXAM: 1. ??XR ANKLE RIGHT 3 OR MORE VIEWS 2. ??XR WRIST LEFT 3 OR MORE VIEWS 3. ??XR HAND LEFT 3 OR MORE VIEWS 4. ??XR HAND RIGHT 3 OR MORE VIEWS 5. ??XR WRIST RIGHT 3 OR MORE VIEWS 6. ??XR ANKLE LEFT 3 OR MORE VIEWS 7. ??XR FOOT LEFT 3 OR MORE VIEWS, 8. ??XR FOOT RIGHT 3 OR MORE VIEWS HISTORY: Psoriatic arthritis and polyarticular pain COMPARISON: None FINDINGS: 3 radiographs of the right hand, 3 radiographs of the right wrist, 3 radiographs of the left hand, 3 views of the left wrist, the radiographs of the right foot, 3 radiographs of left foot, 3 radiographs of the right ankle and 3 radiographs of left ankle are submitted for interpretation. Right hand/wrist: No acute fracture. Alignment is normal. Severe basal joint of thumb and moderate triscaphe joint osteoarthritis. Mild scattered osteoarthritis of the distal interphalangeal joints. Possible old healed fracture of the fifth metacarpal shaft. No definite erosions identified. Left hand/wrist: No acute fracture. Alignment is normal. Possible old healed fifth metacarpal shaft fracture. There is joint space narrowing of the third metacarpophalangeal joint with small hook osteophyte formation and subchondral cyst formation. There is moderate basal joint of thumb osteoarthritis. There is a small ossicle distal to the ulnar styloid process. Mild scattered distal interphalangeal joint osteoarthritis. No definite erosions identified. Left foot/ankle: No acute fracture. Ankle mortise is preserved. Small distal Achilles tendon enthesophyte. Mild osteoarthritis of the great toe metatarsophalangeal joint. No definite erosions identified. Vascular calcifications are present. Right foot/ankle: No acute fracture. Ankle mortise is preserved. Small heterotopic ossification within the distal Achilles tendon. Small calcaneal plantar spur. Moderate great toe metatarsophalangeal joint osteoarthritis. No erosions identified. Vascular calcifications are present. Procedure Note Galen Munoz MD - 07/26/2020 EXAM: 1. XR ANKLE RIGHT 3 OR MORE VIEWS 2. XR WRIST LEFT 3 OR MORE VIEWS 3. XR HAND LEFT 3 OR MORE VIEWS 4. XR HAND RIGHT 3 OR MORE VIEWS 5. XR WRIST RIGHT 3 OR MORE VIEWS 6. XR ANKLE LEFT 3 OR MORE VIEWS 7. XR FOOT LEFT 3 OR MORE VIEWS, 8. XR FOOT RIGHT 3 OR MORE VIEWS HISTORY: Psoriatic arthritis and polyarticular pain COMPARISON: None FINDINGS: 3 radiographs of the right hand, 3 radiographs of the right wrist, 3 radiographs of the left hand, 3 views of the left wrist, the radiographs of the right foot, 3 radiographs of left foot, 3 radiographs of the right ankle and 3 radiographs of left ankle are submitted for interpretation. Right hand/wrist: No acute fracture. Alignment is normal. Severe basal joint of thumb and moderate triscaphe joint osteoarthritis. Mild scattered osteoarthritis of the distal interphalangeal joints. Possible old healed fracture of the fifth metacarpal shaft. No definite erosions identified. Left hand/wrist: No acute fracture. Alignment is normal. Possible old healed fifth metacarpal shaft fracture. There is joint space narrowing of the third metacarpophalangeal joint with small hook osteophyte formation and subchondral cyst formation. There is moderate basal joint of thumb osteoarthritis. There is a small ossicle distal to the ulnar styloid process. Mild scattered distal interphalangeal joint osteoarthritis. No definite erosions identified. Left foot/ankle: No acute fracture. Ankle mortise is preserved. Small distal Achilles tendon enthesophyte. Mild osteoarthritis of the great toe metatarsophalangeal joint. No definite erosions identified. Vascular calcifications are present. Right foot/ankle: No acute fracture. Ankle mortise is preserved. Small heterotopic ossification within the distal Achilles tendon. Small calcaneal plantar spur. Moderate great toe metatarsophalangeal joint osteoarthritis. No erosions identified. Vascular calcifications are present. IMPRESSION: 1. Scattered polyarticular osteoarthritis of the hands, wrists, ankles and feet without definite radiographic evidence for an erosive arthropathy. Electronically signed by: Galen Munoz M.D. Savannah Manriquez NP IMG XR PROCEDURES Final R esult * XR Wrist Left 3 or More Views (07/26/2020 11:30 AM CDT) Anatomical Region Laterality Modality Upper Extremities, Wrist Left Compute d Radiography 07/26/2020 12:1 6 PM CDT Impressions 07/26/2020 12:16 PM CDT 1. Scattered polyarticular osteoarthritis of the hands, wrists, ankles and feet without definite radiographic evidence for an erosive arthropathy. Electronically signed by: Galen Munoz M.D. Narrative 07/26/2020 12:16 PM CDT EXAM: 1. ??XR ANKLE RIGHT 3 OR MORE VIEWS 2. ??XR WRIST LEFT 3 OR MORE VIEWS 3. ??XR HAND LEFT 3 OR MORE VIEWS 4. ??XR HAND RIGHT 3 OR MORE VIEWS 5. ??XR WRIST RIGHT 3 OR MORE VIEWS 6. ??XR ANKLE LEFT 3 OR MORE VIEWS 7. ??XR FOOT LEFT 3 OR MORE VIEWS, 8. ??XR FOOT RIGHT 3 OR MORE VIEWS HISTORY: Psoriatic arthritis and polyarticular pain COMPARISON: None FINDINGS: 3 radiographs of the right hand, 3 radiographs of the right wrist, 3 radiographs of the left hand, 3 views of the left wrist, the radiographs of the right foot, 3 radiographs of left foot, 3 radiographs of the right ankle and 3 radiographs of left ankle are submitted for interpretation. Right hand/wrist: No acute fracture. Alignment is normal. Severe basal joint of thumb and moderate triscaphe joint osteoarthritis. Mild scattered osteoarthritis of the distal interphalangeal joints. Possible old healed fracture of the fifth metacarpal shaft. No definite erosions identified. Left hand/wrist: No acute fracture. Alignment is normal. Possible old healed fifth metacarpal shaft fracture. There is joint space narrowing of the third metacarpophalangeal joint with small hook osteophyte formation and subchondral cyst formation. There is moderate basal joint of thumb osteoarthritis. There is a small ossicle distal to the ulnar styloid process. Mild scattered distal interphalangeal joint osteoarthritis. No definite erosions identified. Left foot/ankle: No acute fracture. Ankle mortise is preserved. Small distal Achilles tendon enthesophyte. Mild osteoarthritis of the great toe metatarsophalangeal joint. No definite erosions identified. Vascular calcifications are present. Right foot/ankle: No acute fracture. Ankle mortise is preserved. Small heterotopic ossification within the distal Achilles tendon. Small calcaneal plantar spur. Moderate great toe metatarsophalangeal joint osteoarthritis. No erosions identified. Vascular calcifications are present. Procedure Note Galen Munoz MD - 07/26/2020 EXAM: 1. XR ANKLE RIGHT 3 OR MORE VIEWS 2. XR WRIST LEFT 3 OR MORE VIEWS 3. XR HAND LEFT 3 OR MORE VIEWS 4. XR HAND RIGHT 3 OR MORE VIEWS 5. XR WRIST RIGHT 3 OR MORE VIEWS 6. XR ANKLE LEFT 3 OR MORE VIEWS 7. XR FOOT LEFT 3 OR MORE VIEWS, 8. XR FOOT RIGHT 3 OR MORE VIEWS HISTORY: Psoriatic arthritis and polyarticular pain COMPARISON: None FINDINGS: 3 radiographs of the right hand, 3 radiographs of the right wrist, 3 radiographs of the left hand, 3 views of the left wrist, the radiographs of the right foot, 3 radiographs of left foot, 3 radiographs of the right ankle and 3 radiographs of left ankle are submitted for interpretation. Right hand/wrist: No acute fracture. Alignment is normal. Severe basal joint of thumb and moderate triscaphe joint osteoarthritis. Mild scattered osteoarthritis of the distal interphalangeal joints. Possible old healed fracture of the fifth metacarpal shaft. No definite erosions identified. Left hand/wrist: No acute fracture. Alignment is normal. Possible old healed fifth metacarpal shaft fracture. There is joint space narrowing of the third metacarpophalangeal joint with small hook osteophyte formation and subchondral cyst formation. There is moderate basal joint of thumb osteoarthritis. There is a small ossicle distal to the ulnar styloid process. Mild scattered distal interphalangeal joint osteoarthritis. No definite erosions identified. Left foot/ankle: No acute fracture. Ankle mortise is preserved. Small distal Achilles tendon enthesophyte. Mild osteoarthritis of the great toe metatarsophalangeal joint. No definite erosions identified. Vascular calcifications are present. Right foot/ankle: No acute fracture. Ankle mortise is preserved. Small heterotopic ossification within the distal Achilles tendon. Small calcaneal plantar spur. Moderate great toe metatarsophalangeal joint osteoarthritis. No erosions identified. Vascular calcifications are present. IMPRESSION: 1. Scattered polyarticular osteoarthritis of the hands, wrists, ankles and feet without definite radiographic evidence for an erosive arthropathy. Electronically signed by: Galen Munoz M.D. Savannah Manriquez NP IMG XR PROCEDURES Final R esult * XR Ankle Right 3 or More Views (07/26/2020 11:30 AM CDT) Anatomical Region Laterality Modality Lower Extremities, Ankle Right Compute d Radiography 07/26/2020 12:1 6 PM CDT Impressions 07/26/2020 12:16 PM CDT 1. Scattered polyarticular osteoarthritis of the hands, wrists, ankles and feet without definite radiographic evidence for an erosive arthropathy. Electronically signed by: Galen Munoz M.D. Narrative 07/26/2020 12:16 PM CDT EXAM: 1. ??XR ANKLE RIGHT 3 OR MORE VIEWS 2. ??XR WRIST LEFT 3 OR MORE VIEWS 3. ??XR HAND LEFT 3 OR MORE VIEWS 4. ??XR HAND RIGHT 3 OR MORE VIEWS 5. ??XR WRIST RIGHT 3 OR MORE VIEWS 6. ??XR ANKLE LEFT 3 OR MORE VIEWS 7. ??XR FOOT LEFT 3 OR MORE VIEWS, 8. ??XR FOOT RIGHT 3 OR MORE VIEWS HISTORY: Psoriatic arthritis and polyarticular pain COMPARISON: None FINDINGS: 3 radiographs of the right hand, 3 radiographs of the right wrist, 3 radiographs of the left hand, 3 views of the left wrist, the radiographs of the right foot, 3 radiographs of left foot, 3 radiographs of the right ankle and 3 radiographs of left ankle are submitted for interpretation. Right hand/wrist: No acute fracture. Alignment is normal. Severe basal joint of thumb and moderate triscaphe joint osteoarthritis. Mild scattered osteoarthritis of the distal interphalangeal joints. Possible old healed fracture of the fifth metacarpal shaft. No definite erosions identified. Left hand/wrist: No acute fracture. Alignment is normal. Possible old healed fifth metacarpal shaft fracture. There is joint space narrowing of the third metacarpophalangeal joint with small hook osteophyte formation and subchondral cyst formation. There is moderate basal joint of thumb osteoarthritis. There is a small ossicle distal to the ulnar styloid process. Mild scattered distal interphalangeal joint osteoarthritis. No definite erosions identified. Left foot/ankle: No acute fracture. Ankle mortise is preserved. Small distal Achilles tendon enthesophyte. Mild osteoarthritis of the great toe metatarsophalangeal joint. No definite erosions identified. Vascular calcifications are present. Right foot/ankle: No acute fracture. Ankle mortise is preserved. Small heterotopic ossification within the distal Achilles tendon. Small calcaneal plantar spur. Moderate great toe metatarsophalangeal joint osteoarthritis. No erosions identified. Vascular calcifications are present. Procedure Note Galen Munoz MD - 07/26/2020 EXAM: 1. XR ANKLE RIGHT 3 OR MORE VIEWS 2. XR WRIST LEFT 3 OR MORE VIEWS 3. XR HAND LEFT 3 OR MORE VIEWS 4. XR HAND RIGHT 3 OR MORE VIEWS 5. XR WRIST RIGHT 3 OR MORE VIEWS 6. XR ANKLE LEFT 3 OR MORE VIEWS 7. XR FOOT LEFT 3 OR MORE VIEWS, 8. XR FOOT RIGHT 3 OR MORE VIEWS HISTORY: Psoriatic arthritis and polyarticular pain COMPARISON: None FINDINGS: 3 radiographs of the right hand, 3 radiographs of the right wrist, 3 radiographs of the left hand, 3 views of the left wrist, the radiographs of the right foot, 3 radiographs of left foot, 3 radiographs of the right ankle and 3 radiographs of left ankle are submitted for interpretation. Right hand/wrist: No acute fracture. Alignment is normal. Severe basal joint of thumb and moderate triscaphe joint osteoarthritis. Mild scattered osteoarthritis of the distal interphalangeal joints. Possible old healed fracture of the fifth metacarpal shaft. No definite erosions identified. Left hand/wrist: No acute fracture. Alignment is normal. Possible old healed fifth metacarpal shaft fracture. There is joint space narrowing of the third metacarpophalangeal joint with small hook osteophyte formation and subchondral cyst formation. There is moderate basal joint of thumb osteoarthritis. There is a small ossicle distal to the ulnar styloid process. Mild scattered distal interphalangeal joint osteoarthritis. No definite erosions identified. Left foot/ankle: No acute fracture. Ankle mortise is preserved. Small distal Achilles tendon enthesophyte. Mild osteoarthritis of the great toe metatarsophalangeal joint. No definite erosions identified. Vascular calcifications are present. Right foot/ankle: No acute fracture. Ankle mortise is preserved. Small heterotopic ossification within the distal Achilles tendon. Small calcaneal plantar spur. Moderate great toe metatarsophalangeal joint osteoarthritis. No erosions identified. Vascular calcifications are present. IMPRESSION: 1. Scattered polyarticular osteoarthritis of the hands, wrists, ankles and feet without definite radiographic evidence for an erosive arthropathy. Electronically signed by: Galen Munoz M.D. Savannah Manriquez SHEET WRITER IMG XR PROCEDURES Final R esult documented in this encounter Visit Diagnoses Diagnosis Arthralgia, unspecified joint Psoriatic arthritis (HCC) Psoriatic arthropathy documented in this encounter Care Teams Bookkeeping Teacher Relationship Specialty Start Date End Date Sadi Puckett MD PCP - General 07/26/20 documented as of this encounter
--- OUTSIDE RECORDS SUMMARY | 2024-05-10 01:11 | XMS_ITS | Encounter Summary ---
Author Organization [facility] Address [address] [place] [address] Phone Care Team Providers Care Refinery Operator Polymerization Plant Name Role Phone Sadi Puckett MD Primary Care Provider + [phone] Reason for Referral * Diagnostic Imaging (Routine) - Closed Specialty Diagnoses / Procedures Referred By Contflorencia t Referred To Contact Diagnoses Arthralgia, unspecified joint Procedures XR Ankle Right 3 or More Views Savannah Manriquez NP Phone: tel: fax: [facility] Referral ID Status Reason Start Date Expiration Date Visits Re quested Visits Authorized [id number] Closed 07/26/2020 08/25/2021 1 1 * Diagnostic Imaging (Routine) - Closed Specialty Diagnoses / Procedures Referred By Contflorencia t Referred To Contact Diagnoses Arthralgia, unspecified joint Procedures XR Foot Right 3 or More Views Savannah Manriquez NP Phone: tel: fax: [facility] Referral ID Status Reason Start Date Expiration Date Visits Re quested Visits Authorized [id number] Closed 07/26/2020 08/25/2021 1 1 * Diagnostic Imaging (Routine) - Closed Specialty Diagnoses / Procedures Referred By Contac t Referred To Contact Diagnoses Arthralgia, unspecified joint Procedures XR Foot Left 3 or More Views Savannah Manriquez NP Phone: tel: fax: [facility] Referral ID Status Reason Start Date Expiration Date Visits Re quested Visits Authorized [id number] Closed 07/26/2020 08/25/2021 1 1 * Diagnostic Imaging (Routine) - Closed Specialty Diagnoses / Procedures Referred By Contac t Referred To Contact Diagnoses Arthralgia, unspecified joint Procedures XR Ankle Left 3 or More Views Savannah Manriquez NP Phone: tel: fax: [facility] Referral ID Status Reason Start Date Expiration Date Visits Re quested Visits Authorized [id number] Closed 07/26/2020 08/25/2021 1 1 * Diagnostic Imaging (Routine) - Closed Specialty Diagnoses / Procedures Referred By Contac t Referred To Contact Diagnoses Psoriatic arthritis (HCC) Procedures XR Wrist Right 3 or More Views Savannah Manriquez NP Phone: tel: fax: [facility] Referral ID Status Reason Start Date Expiration Date Visits Re quested Visits Authorized [id number] Closed 07/26/2020 08/25/2021 1 1 * Diagnostic Imaging (Routine) - Closed Specialty Diagnoses / Procedures Referred By Contac t Referred To Contact Diagnoses Psoriatic arthritis (HCC) Procedures XR Hand Right 3 or More Views Savannah Manriquez NP Phone: tel: fax: [facility] Referral ID Status Reason Start Date Expiration Date Visits Re quested Visits Authorized [id number] Closed 07/26/2020 08/25/2021 1 1 * Diagnostic Imaging (Routine) - Closed Specialty Diagnoses / Procedures Referred By Contac t Referred To Contact Diagnoses Psoriatic arthritis (HCC) Procedures XR Hand Left 3 or More Views Savannah Manriquez NP Phone: tel: fax: [facility] Referral ID Status Reason Start Date Expiration Date Visits Re quested Visits Authorized [id number] Closed 07/26/2020 08/25/2021 1 1 * Diagnostic Imaging (Routine) - Closed Specialty Diagnoses / Procedures Referred By Karla t Referred To Contact Diagnoses Psoriatic arthritis (HCC) Procedures XR Wrist Left 3 or More Views Savannah Manriquez NP Phone: tel: fax: [facility] Referral ID Status Reason Start Date Expiration Date Visits Re quested Visits Authorized [id number] Closed 07/26/2020 08/25/2021 1 1 Reason for Visit * Consultation (Routine) - Closed Specialty Diagnoses / Procedures Referred By Karla t Referred To Contact Rheumatology Diagnoses Psoriatic arthritis (HCC) Mau Buchanan Jr., SHAHIDA Phone: tel: fax: [facility] (All Locations) Referral ID Status Reason Start Date Expiration Date V isits Requested Visits Authorized [id number] Closed Specialty Services Required 06/28/2020 07/28/2021 3 3 Encounter Details Date Type Department Care Team (Latest Contact Info) Description 07/26/2020 10:00 AM CDT Office Visit [facility] Rheumatology [address] 5th [place] [address] [place] [address] Savannah Manriquez NP [address] [place] [address] Arthralgia, unspecified joint (Primary Dx); Psoriatic arthritis (CMS/HCC); Rash; Osteoarthritis of other site, unspecified osteoarthritis type Social History Tobacco Use Types Packs/Day Years Used Date Smoking Tobacco: Never Sex and Gender Information Value Date Recorded Sex Assigned at Not on file Legal Sex Male 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 male with PMHx significant for hyperlipidemia and seasonalallergies is referred for the evaluation of possible psoriatic arthritis. The patient reports that he has had joint pain for 10-15 years. 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 In the past 5 years he has noticed increasingly worsening bilateral hand pain with decreased strength (MCP predominate; L > R). He is left handed. Approximately one month ago he started meloxicam which has relieved much of his symptoms. His most painful joint overall is his rt 1st MTP. He notes that for years he kicked through drywall with this foot. This pain has improved with meloxicam 15 mg daily.. He denies AM stiffness. He has a history of back pain that occurs with certain activities. He notesthis has been well controlled for years and that he follows with a chiropractor weekly for this. Angus not have stiffness to his back. About a month ago he developed a rash to his left forearm and rt elbow crease. He was recently in [place] and the sun had no affect upon it. Using baby oil has improved this rash. He denies history of dactylitis, plantar fascia pain and achilles tendon insertion pain Review of Systems (no) Weight Loss, (no) Fatigue, (no) Fever, (no) Headache, (no) Scalp Tenderness, (no) h/o Scleritis/Episcleritis, (no) h/o Iritis/Uveitis, (no) Oral/Nasal Ulcers, (no) Epistaxis, (no) Dry Eyes, (no)Dry Mouth, (see above) Rash, (no) Photosensitivity, (no) Skin Ulcers, (no) Purpura/Petechiae, (no) Skin Tightening, (no) Pleurisy, (no) Pericarditis/Pericardial effusion, (no) Acid Reflux, (see above) Joint Pain, (no) Morning stiffness, (no) Enthesitis, (no) Dactylitis, (see above) Back Pain, (no) Raynaud's, (no) Hematuria, (no) Frothy urine, (no) DVT/PE, PHx: (no) Asthma, (+) Chronic Sinusitis, (no) Psoriasis, (no) Colitis, (no) Urethritis Routine Screenings Colonoscopy: 2020 Immunizations: COVID-19 2/ Past Medical History History reviewed. No pertinent past medical history. Past Social History History reviewed. No pertinent surgical history. Family History History reviewed. No pertinent family history. Social History Social History Tobacco Use ??? Smoking status: Never Smoker Substance Use Topics ??? Alcohol use: Not on file ??? Drug use: Not on file MEDICATIONS No current outpatient medications on file. No current facility-administered medications for this visit. ALLERGIES No Known Allergies OBJECTIVE Physical Examination Vitals: BP 160/81 Pulse 64 Temp 36.4 ??C (97.5 ??F) Ht 177.8 cm (5' 10 ) Wt 88.5 kg (195 lb3.2 oz) BMI 28.01 kg/m?? GENERAL: In no acute distress. Well-developed and well nourished. PSYCHOLOGICAL: Alert and oriented. Cooperative, normal stated mood, congruent affect. Judgement andthought content normal. HENT: No oral lesions. Normocephalic, atraumatic. Hearing adequate for conversation. EYES: Anicteric, non-icteric sclera. PEERL. NECK: Supple with no lymphedenopathy ABDOMEN: Soft, non-tender. RESPIRATORY: Non-labored breathing. No audible cough or wheeze. Clear to auscultation bilaterally. CARDIOVASCULAR: Regular rate and rhythm. No edema. Bilateral lower extremities are warm well perfused. SKIN: Possible pitting to right great toe and right second toe. Rash to left forearm and right elbow crease. Otherwise no other noted rashes or open wounds. NEUROLOGIC: Alert and oriented X4. Upper extremity and lower extremity strength 5/5. MUSCULOSKELETAL: No synovitis, warmth or redness of DIP/PIP/MCP/wrists B/L. Knees cool without effusion. TTP of right midfoot and 1st MTP. Otherwise no TTP of MTP's, ankles, left foot. No TTP of bilateral achilles tendon insertion points. Strength 5/5 bilaterally with shoulder abduction, elbow flexion, elbow extension, hip flexion, kneeextension, knee flexion, ankle dorsiflexion, ankle eversion. Sensation: intact light touch sensation throughout both lower extremities. Inspection: Normal alignment of lumbar spine. No shift or scoliosis. Normal posture.No TTP over spine, SIJs, parapspinal regions, trochanteric bursa. Labs No results found for this or any previous visit. No results found for: WBC, HGB, HCT, MCV, PLT No results found for: AST, ALT, ALKPHOS, CREATININE No results found for: SEDRATE No results found for: CRP No results found for: SEDRATE, RF, ELIUD, ANATITER, ANAPATTRN1, ANATITERADD, ANADIRECT, CRP, DSDNA, DSDNAAB No results found for: ALDOLASE, NICK, SCL70, C3, C4, CH50, HLAB27, CKTOTAL, CKMM [facility] rt foot 2 view imaging demonstrated severe osteoarthritis at the first MTP with mild plantar calcaneal enthesopathy. Distal achilles tendon calcification noted. IMPRESSIONS/RECOMMENDATIONS Assessment: 1. Arthralgia, unspecified joint 2. Psoriatic arthritis ([facility]) Plan 1. Psoriatic arthritis ([facility]) - Ambulatory referral to Rheumatology - XR Wrist Left 3 or More Views; Future - XR Hand Left 3 or More Views; Future - XR Hand Right 3 or More Views; Future - XR Wrist Right 3 or More Views; Future - Ambulatory referral to Dermatology; Future 2. Arthralgia, unspecified joint - XR Ankle Left 3 or More Views; Future - XR Foot Left 3 or More Views; Future - Rheumatoid factor; Future - Cyclic citrul peptide antibody, IgG; Future - XR Foot Right 3 or More Views; Future - XR Ankle Right 3 or More Views; Future - Ambulatory referral to Dermatology; Future # arthralgia # rash - RF, CCP - 06/26 CBC, CMP ok - imaging of bilateral hands and wrists as well as bilateral feet and ankles; pt's MCP predominate pain prior to starting meloxicam warrants further assessment - dermatology referral to assess rash; rash is not classic for psoriasis so would appreciate derm'sinput - based upon CASPAR criteria, unclear possibility of Psoriatic Arthritis at this point; pt's symptoms are primarily OA sounding in nature and have greatly improved with meloxicam. We discussed the risks and benefits of NSAID use including monitoring kidney function and monitoring for GI s/e. Pt expresses understanding of risks. - continued voltaren gel for arthralgias CASPAR CRITERIA ??? Evidence of Psoriasis o 1 point (past or family history) o 2 points (current history of psoriasis) ? Psoriatic nail dystrophy o 1 point ? Negative RF o 1 point ??? Dactylitis o 1 point (current) o 1 point (past history of) ??? Radiographic Evidence of Juxtarticular New Bone Formation o 1 point TOTAL: ? - awaiting imaging, RF, and derm input 3 or more points 99% specific, 92% sensitive for Psoriatic Arthritis Diagnosis RTC Return in about 4 months (around 11/25/2020). Previous records and imaging reviewed as per above. Consult to be sent to requesting physician. The patient reports no further questions or concerns at this time. I personally spent 60 minutes in the care and consultation of this patient. aSvannah Manriquez, MSN, J2EE DEVELOPER, AGPCNP-C This visit was dictated by Savannah Manriquez using [facility] Fluency Direct software. Vinyl Flooring Installer variances may occur. Cosigned by Olivia Barnard MD at 07/26/2020 11:46 AM CDT documented in this encounter Plan of Treatment Not on file documented as of this encounter Results * Cyclic citrul peptide antibody, IgG (07/26/2020 11:50 AM CDT) CCP Ab <0.5 <=2.9 units/mL [facility] Comment: Interpretive data Negative: <3 units/mL Positive: > or equal to 3 units/mL Current interpretive data was last revised on 2016. Blood specimen (specimen) 07/26/2020 11:50 AM CDT 07/26/2020 12:00 PM CDT us Savannah Manriquez ORACLE BPM DEVELOPER LAB BLOOD ORDERABLES Amaya l Result Performing Organization Address City/[facility]/ZIP Co de Phone Number [facility] Department [place] [address] [address] * Rheumatoid factor (07/26/2020 11:50 AM CDT) Pathologist [facility] Rheumatoid factor, quant <10.0 0.1 - 15.0 IUnits/mL [facility] Blood specimen (specimen) 07/26/2020 11:50 AM CDT 07/26/2020 12:00 PM CDT us Savannah Manriquez ORACLE BPM DEVELOPER LAB BLOOD ORDERABLES Amaya l Result [facility] [place] [address] * XR Ankle Right 3 or More [...] PROCEDURES Final R esult * XR Foot Right 3 or More [...] signed by: Galen Munoz M.D. us Savannah Ann Manriquez NP IMG XR PROCEDURES Final R [...] Electronically signed by: Galen Munoz M.D. Savannah Juarez Declan JO IMG XR PROCEDURES Final R esult * [...] signed by: Galen Munoz M.D. us Savannah Ann Manriquez NP IMG XR PROCEDURES Final R [...] NP IMG XR PROCEDURES Final R esult documented in this encounter Visit Diagnoses Diagnosis Arthralgia, unspecified joint- Primary Psoriatic arthritis (HCC) Psoriatic arthropathy Rash Rash and other nonspecific skin eruption Osteoarthritis of other site, unspecified osteoarthritis type Arthralgia, unspecified joint Psoriatic arthritis (HCC) Psoriatic arthropathy documented in this encounter Historical Medications * This list may reflect changes made after this encounter. triamcinolone (KENALOG) 0.1 % cream APPLY EXTERNALLY TO THE AFFECTED AREA TWICE DAILY 06/08/2020 meloxicam (MOBIC) 15 mg tablet Take 15 mg by mouth daily 07/02/2020 loratadine (CLARITIN) 10 mg tablet Take 10 mg by mouth daily 05/02/2020 finasteride (PROSCAR) 5 mg tablet 07/14/2020 atorvastatin (LIPITOR) 40 mg tablet Take 40 mg by mouth daily 05/02/2020 added in this encounter Orders Outpatient Referral Count Last Ordered Date Fir st Ordered Date AMB REFERRAL TO RHEUMATOLOGY 1 07/26/2020 documented in this encounter Care Teams Refinery Operator Polymerization Plant Relationship Specialty Start Date End Date Sadi Puckett MD PCP - General 07/26/20 documented as of this encounter
--- OUTSIDE RECORDS SUMMARY | 2024-05-10 01:11 | XMS_ITS | Encounter Summary ---
Author Organization [facility] Healthcare Address [address] [place] [address] Care Team Providers Care Door Glass Installer Name Role Phone Sadi Puckett MD Primary Care Provider + [phone] Encounter Details Date Type Department Care Team (Late st Contact Info) Description 07/26/2020 12:00 PM CDT Lab [facility] ([facility]) [address] [place] [phone] Savannah Manriquez, SANDRO [address] [place], [place] [id number] Arthralgia, unspecified joint Discharge Disposition: Discharge to home or self care Social History Tobacco Use Types Packs/Day Years Used Date Smoking Tobacco: Never Sex and Gender Information Value Date Recorded Sex Assigned at Not on file 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 Gender Identity Male 07/26/2020 12:52 PM CDT Sexual Orientation Not on file documented as of this encounter Discharge Disposition Disposition Code Departure Means Destination Discharge to home or self care documented in this encounter Plan of Treatment Not on file documented as of this encounter Procedures Procedure Name Priority Date/Time Associated Diagnosis Comments CYCLIC CITRUL PEPTIDE ANTIBODY, IGG Routine 07/26/2020 11:50 AM CDT Arthralgia, unspecified joint RHEUMATOID FACTOR Routine 07/26/2020 11: 50 AM CDT Arthralgia, unspecified joint documented in this encounter Results * Rheumatoid factor (07/26/2020 11:50 AM CDT) Rheumatoid factor, quant <10.0 0.1 - 15.0 IUnits/mL [facility] Blood specimen (specimen) 07/26/2020 11:50 AM CDT 07/26/2020 12:00 PM CDT Savannah Manriquez DISPOSAL OPERATOR LAB BLOOD ORDERABLES Amaya l Result Performing Organization Address [facility] Co de Phone Number [facility] [place] [address] * Cyclic citrul peptide antibody, IgG (07/26/2020 11:50 AM CDT) Pathologist [facility] CCP Ab <0.5 <=2.9 units/mL [facility] Comment: Interpretive data Negative: <3 units/mL Positive: > or equal to 3 units/mL Current interpretive data was last revised on 2016. Blood specimen (specimen) 07/26/2020 11:50 AM CDT 07/26/2020 12:00 PM CDT Savannah Manriquez DISPOSAL OPERATOR LAB BLOOD ORDERABLES Amaya l Result Performing Organization Address [facility] Co de Phone Number [facility] [place] [address] documented in this encounter Visit Diagnoses Diagnosis Arthralgia, unspecified joint documented in this encounter Care Teams Door Glass Installer Relationship Specialty Start Date End Date Sadi Puckett MD PCP - General 07/26/20 documented as of this encounter
--- OUTSIDE RECORDS SUMMARY | 2024-05-10 01:11 | XMS_ITS | Encounter Summary ---
Author Organization [facility] Address [address] [place] [address] Phone Care Team Providers Care Sephora Operations Consultant Name Role Phone Sadi Puckett MD Primary Care Provider + [phone] Encounter Details Date Type Department Care Team (Late st Contact Info) Description 07/29/2020 Telephone [facility] Rheumatology [facility] 5th [place] [address] [place] [address] Savannah Manriquez, SANDRO [address] [facility] [address] [place], [place] [id number] Social History Tobacco Use Types Packs/Day Years Used Date Smoking Tobacco: Never Sex and Gender Information Value Date Recorded Sex Assigned at Not on file 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 Imaging showed OA. Pt has derm appt but asked if he could cancel if his rash goes away. He has noticed that it has improved significantly with baby oil. I advised that he go unless his rash completely resolves and stays resolved. Pt instructed to please call our clinic to schedule another visit if he develops new or worsening arthralgias unrelieved by his NSAID regimen. Discussed s & sx of inflammatory arthritis. Pt has no other questions or concerns at this time. Savannah Manriquez, MSN, CAT TENDER, AGPCNP-C documented in this encounter Plan of Treatment Not on file documented as of this encounter Visit Diagnoses Not on filedocumented in this encounter Care Teams Sephora Operations Consultant Relationship Specialty Start Date End Date Sadi Puckett MD PCP - General 07/26/20 documented as of this encounter
--- OUTSIDE RECORDS SUMMARY | 2024-05-10 01:11 | XMS_ITS | Referral Summary ---
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
== END 2024-05-03 05:10 | disposition home or self-care (01) ==
PROVIDERS: Emergency Provider Emergency Medicine; PCP Family Medicine
DX: R07.89 Other chest pain (principal); R11.2 Nausea with vomiting, unspecified; Z87.891 Personal history of nicotine dependence; R00.1 Bradycardia, unspecified; R94.31 Abnormal electrocardiogram [ECG] [EKG]
CPT/HCPCS: 36415; 71045; 74177; 80053; 83690; 84484; 85025; 85610; 85730; 93005; 96374; 96375; 99284; A9270; J0780; J1200; J1630; J2405; Q9967

== ENCOUNTER 2024-11-13 07:51 | Outpatient (CLI) | payer MEDICARE, SELFPAY ==
--- OUTSIDE RECORDS SUMMARY | 2024-11-13 07:55 | XMS_ITS | Referral Summary ---
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 Gender Identity Male 07/26/2020 12:52 PM CDT Sexual Orientation Not on file Last Filed Vital Signs Vital Sign Reading Time Taken Comments Blood Pressure 160/81 07/26/2020 9:45 AM CDT Pulse 64 07/26/2020 9:45 AM CDT Temperature 36.4 C (97.5 F) 07/26/2020 9:45 AM CDT Respiratory Rate - - Oxygen Saturation - - Inhaled Oxygen Concentration - - Weight 88.5 kg (195 lb 3.2 oz) 07/26/2020 9:45 A M CDT Height 177.8 cm (5' 10) 07/26/2020 9:45 AM CDT Body Mass Index 28.01 07/26/2020 9:45 AM CDT Plan of Treatment Not on file Insurance CIGNA CIGNA Care Teams Fitness Worker Relationship Specialty Start Date End Date Sadi Puckett MD PCP - General 07/26/20
--- OUTSIDE RECORDS SUMMARY | 2024-11-13 07:55 | XMS_ITS | Encounter Summary ---
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
--- OUTSIDE RECORDS SUMMARY | 2024-11-13 07:55 | XMS_ITS | Clinical Summary ---
Author Organization [facility] Address [address] [place] [address] Care Team Providers Care Etl Analyst Name Role Phone Sadi Puckett MD Primary Care Provider + [phone] Allergies No known active allergies Medications atorvastatin [...] on file Legal Sex Male 6:30 PM HAND EDGER Gender Identity Male 07/26/2020 12:52 PM CDT [...] on file Insurance CIGNA CIGNA Care Teams Etl Analyst Relationship Specialty Start Date End Date Sadi Puckett MD PCP - General 07/26/20
== END 2024-11-13 07:52 | disposition home or self-care (01) ==
PROVIDERS: PCP Family Medicine; Visit Provider Nurse Practitioner Family
DX: Z01.10 Encounter for examination of ears and hearing without abnormal findings (principal); H90.3 Sensorineural hearing loss, bilateral
CPT/HCPCS: 92557; 92567

== ENCOUNTER 2024-12-28 08:00 | Outpatient (RCR) | payer SELFPAY | END 2025-02-21 23:59 | disposition home or self-care (01) | LOC: ANHAUDASC 08:00 | PROVIDERS: PCP Family Medicine; Visit Provider Family Medicine | DX: Z46.1 Encounter for fitting and adjustment of hearing aid (principal) | CPT/HCPCS: 99199; V5261 ==